=== PATIENT | female | born 1945 | race Caucasian/White ===

== ENCOUNTER 2021-12-19 06:16 | Day surgery (SDC) | payer OTHER ==
[2021-12-13 11:55] VITALS: BMI 27.4
[2021-12-19] MEDS ORDERED: ERYTHROMYCIN 0.5% OPHTHALMIC OINTMENT 3.5 GM TUBE ONE (07:12)
[2021-12-19] MEDS ORDERED: TETRACAINE 0.5% OPHTH SOLN 2 ML BOTTLE ONE (07:12)
[2021-12-19] MEDS ORDERED: BUPIVACAINE HCL 50 ML ONE (07:13)
[2021-12-19] MEDS ORDERED: POVIDONE-IODINE 5% OPHTHALMIC PREP 30 ML SOLUTION ONE (07:13)
[2021-12-19] MEDS ORDERED: LIDOCAINE 1%/EPI 1:100000 (20 ML MULTI DOSE VIAL) ONE (07:13)
[2021-12-19] MEDS ORDERED: ceFAZolin SODIUM 1 GM VIAL ONE ×2 (07:33→07:38)
[2021-12-19] MEDS ORDERED: ONDANSETRON 4 MG/2 ML VIAL ONE (07:38)
[2021-12-19] MEDS ORDERED: PROPOFOL 20 ML ONE ×3 (07:38)
[2021-12-19] MEDS ORDERED: DEXAMETHASONE SOD PHOSPHATE 4 MG/1 ML VIAL ONE (07:38)
[2021-12-19] MEDS ORDERED: MIDAZOLAM HCL 2 MG/2 ML SINGLE DOSE VIAL ONE (07:38)
[2021-12-19] MEDS ORDERED: SUCCINYLCHOLINE CHLORIDE 200 MG/10 ML SYRINGE ONE (07:38)
[2021-12-19] MEDS ORDERED: KETOROLAC TROMETHAMINE 30 MG/1 ML VIAL ONE (07:38)
[2021-12-19] MEDS ORDERED: LIDOCAINE HCL/PF 2% SDV 5ML VIAL ONE (07:39)
[2021-12-19] MEDS ORDERED: LIDOCAINE HCL 2% JELLY (5 ML/TUBE) ONE (07:39)
[2021-12-19] MEDS ORDERED: oxyCODONE HCL 5 MG TABLET PO PRN ×2 (10:22)
[2021-12-19] MEDS ORDERED: ACETAMINOPHEN 325 MG TABLET (FP) PO PRN (10:22)
[2021-12-19] MEDS ORDERED: ONDANSETRON 4 MG/2 ML VIAL IVPUSH PRN (10:22)
[2021-12-19 11:15] VITALS: TEMP 97.4
[2021-12-19 11:42] VITALS: BP 102/45; PULSE 85
== END 2021-12-19 12:00 | disposition home or self-care (01) ==
LOC: FASU 06:16
PROVIDERS: ATTEND Ophthalmology
PROC: 08BSXZX Excision of Right Conjunctiva, External Approach, Diagnostic (ICD-10-PCS; 2021-12-19)
PROC: 08SR0ZZ Reposition Left Lower Eyelid, Open Approach (ICD-10-PCS; principal; 2021-12-19 08:13)
PROC: 08SQ0ZZ Reposition Right Lower Eyelid, Open Approach (ICD-10-PCS; 2021-12-19 08:13)
PROC: 0HB1XZX Excision of Face Skin, External Approach, Diagnostic (ICD-10-PCS; 2021-12-19 08:13)
DX: H04.221 Epiphora due to insufficient drainage, right side (principal); H02.102 Unspecified ectropion of right lower eyelid; H02.105 Unspecified ectropion of left lower eyelid; H11 Other disorders of conjunctiva; H04.5 Stenosis and insufficiency of lacrimal passages
CPT/HCPCS: 94760